=== PATIENT | female | born 1950 | race Caucasian/White ===

== ENCOUNTER 2019-03-19 18:08 | Emergency (ER) | payer MEDICARE, OTHER ==
[~2019-03-19] VITALS: Ht 167.6 cm; Wt 75.7 kg
[2019-03-19] MEDS ORDERED: HYDROCODONE/APAP 5MG-325MG TAB PO ONE (18:30)
--- NOTE | 2019-03-19 19:02 | Diagnostic Imaging Report ---
Wrist Complete right CPT Code: 25935 Indication: Fall Technique: Three views right wrist obtained. Comparison: None Findings: The osseous structures are well developed and mineralized. There is mild negative ulnar variance. No fractures or dislocations. No radio-opaque foreign bodies in the soft tissues. IMPRESSION: No evidence of displaced fracture or dislocation of the wrist. Signed by: Dr. Elodia Paulino MD on 03/19/2019 6:59 PM
[2019-03-19] MEDS ORDERED: HYDROCODONE/APAP 5MG-325MG TAB ONE (19:26)
== END 2019-03-19 19:35 | disposition home or self-care (01) ==
LOC: FSED 18:08
DX: G89.11 Acute pain due to trauma (principal); S63.521A Sprain of radiocarpal joint of right wrist, initial encounter; S63.511A Sprain of carpal joint of right wrist, initial encounter; W01.0XXA Fall on same level from slipping, tripping and stumbling without subsequent striking against object, initial encounter; Y92.008 Other place in unspecified non-institutional (private) residence as the place of occurrence of the external cause
CPT/HCPCS: 99283